=== PATIENT | male | born 1965 | race Caucasian/White ===

== ENCOUNTER → 2024-08-15 | Outpatient (CLI) | payer OTHER ==
--- NOTE | 2024-08-15 16:21 | US ---
EXAMINATION TYPE: US extremity nonvasc mass LT DATE OF EXAM: 08/15/2024 COMPARISON: NONE CLINICAL INDICATION: Male, 59 years old with history of R22.42 LOCALIZED SWELLING, MASS AND LUMP; Pt states palpable lump left anterior ankle x 10 years TECHNIQUE: Left anterior ankle FINDINGS/IMPRESSION: Non-vascular, Superficial Hypoechoic lesion left anterior ankle at palpable= 0. 9 x 0.5 x 0.9 cm. No definitive extension to the skin surface. Demonstrates posterior acoustic enhanc ement and suggests a cystic lesion with internal debris such as a sebaceous cyst versus other etiolog ies. [facility], , 08/15/2024 4:18 PM
== END | disposition home or self-care (01) ==
LOC: RADUSWWP 15:47
PROVIDERS: ATTEND Family Medicine
DX: R22.42 Localized swelling, mass and lump, left lower limb (principal)